=== PATIENT | female | born 1970 | race Caucasian/White ===

== ENCOUNTER 2021-09-02 09:22 | Day surgery (SDC) | payer BC ==
[2021-08-31 09:12] LABS: Absolute Lymphocytes (CBC) 2.1 K/uL (0.7-4.9); Hematocrit 43.8 % (36.0-45.0); Lymphocytes % 32.9 % (15.3-44.8); MPV 8.3 fL (7.6-11.3); RBC Red Blood Cell Count 4.87 M/uL (3.86-4.86)
[2021-08-31 09:18] LABS: Protime INR 0.92
[2021-08-31 09:33] LABS: Albumin 4.1 g/dL (3.4-5.0); Bilirubin Total 0.3 mg/dL (0.2-1.0); C-Reactive Protein 4.26 mg/L (<3.00); Protein, Total 7.7 g/dL (6.4-8.2)
[2021-08-31 09:34] LABS: Potassium 4.6 mmol/L (3.5-5.1)
--- NOTE | 2021-08-31 09:48 | RAD REPORT ---
EXAM DESCRIPTION: Jose Crawford And Esvin (2 Views)08/31/2021 9:30 am CLINICAL HISTORY: Preop for knee surgery COMPARISON: 2011 FINDINGS: Mild bilateral interstitial lung opacities appear chronic. The lungs appear clear of acute infiltrate. The heart is normal size IMPRESSION: No acute abnormalities displayed
[2021-08-31 10:23] LABS: Rheumatoid Factor NEG (NEG)
[2021-09-02] MEDS ORDERED: CEFAZOLIN SODIUM 1 GM/VIAL ONE (09:34)
[2021-09-02] MEDS ORDERED: Ringers Lactate 1,000 ML IV ONE (09:34)
[2021-09-02] MEDS ORDERED: NA CHLORIDE 0.9% 50 ML ONE (09:55)
[2021-09-02] MEDS ORDERED: propofoL 200 MG/20 ML VIAL IV ONE (10:35)
[2021-09-02] MEDS ORDERED: FENTANYL CITR 100 MCG/2 ML ONE (10:35)
[2021-09-02] MEDS ORDERED: MIDAZOLAM HCL 2 MG/2 ML INJ ONE (10:36)
[2021-09-02] MEDS ORDERED: LIDOCAINE 2% MPF 5 ML VIAL ONE (10:36)
[2021-09-02] MEDS ORDERED: ONDANSETRON 4 MG/2 ML VIAL ONE (10:36)
[2021-09-02] MEDS ORDERED: BUPIVACAINE 0.25% PF 10 ML VIAL ONE (10:44)
[2021-09-02] MEDS ORDERED: dexAMETHasone 10 MG/ML VIAL ONE (11:40)
[2021-09-02] MEDS ORDERED: KETOROLAC 30 MG/ML INJ ONE (11:40)
--- NOTE | 2021-09-02 12:55 | P.BOP ---
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
[2021-09-02 13:24] VITALS: O2SAT 97
[2021-09-02] MEDS ORDERED: HYDROCODONE/APAP 5/325 MG TAB ONE (14:37)
[2021-09-02 14:53] VITALS: BP 141/81; TEMP 97.5
--- NOTE | 2021-09-03 03:14 | OP ---
Date of Procedure: 09/02/2021 Surgeon: Jatinder Ellison MD Preoperative Diagnoses: 1.Right knee medial meniscus tear. 2.Right knee anterior cyst. Postoperative Diagnoses: 1.Right knee medial meniscus tear. 2.Right knee anterior cyst. 3.Right knee medial plica. Procedures Performed: 1.Right knee arthroscopic partial medial meniscectomy. 2.Right knee arthroscopic plica excision. 3.Right knee anterior cyst excision. Anesthesia: General LMA. Fluids: Per Anesthesia record. Ebl: 5 cc. Complications: None. Specimen: Right knee anterior cyst. Implants: None. Tourniquet Time: 44 minutes at 300 mmHg. Indication For Procedure: Yanet is a 51-year-old female who presented to my clinic with signs, sympt oms, and MRI findings consistent with a medial meniscus tear as well as an anterior subcutaneous gang lion cyst. I discussed with the patient at length risks and benefits associated with operative and n onoperative treatment. She expressed understanding and elected to proceed with operative treatment. Description Of Procedure: After informed consent was obtained, the patient was identified in the pre operative holding area. The right lower extremity was marked. The patient was then brought back to the operating room, transferred to the operating table in supine fashion and placed under general LMA anesthesia. The right lower extremity was then prepped and draped in usual sterile fashion. A time -out was initiated. The correct patient and procedure were confirmed and identified. The patient di d receive her preoperative prophylactic antibiotics. The right lower extremity was then exsanguinate d using an Esmarch and the tourniquet was inflated to 300 mmHg. Attention was first taken to excisin g the anterior subcutaneous ganglion cyst. Approximately a 2 cm longitudinal incision was made cente red over the ganglion cyst, just anterior to the lateral patella. Dissection was then taken using te notomies to skeletonize the cyst, the stalk was then found and cauterized and the cyst was excised an d sent to Pathology. The wound was then irrigated thoroughly with normal saline and incision was gisela roximated using a 4-0 Monocryl. Next, attention was taken to perform an arthroscopy. Standard anter omedial and anterolateral portals were created. Arthroscope was brought in via the anterolateral por heather and diagnostic arthroscopy was performed. The arthroscope was first brought into patellofemoral joint where the patient was noted to have grade 3 changes on the undersurface of the patella. The ar throscope was then brought in both medial and lateral gutters and there were no loose bodies found. The patient was noted to have a medial plica and an arthroscopic shaver and radiofrequency ablator we re then used to perform a medial plica excision. After this was completed, there was no plica that w as rubbing on the medial femoral condyle. The arthroscope was then brought to the medial compartment where the patient noted to have a complex tear of the posterior horn and body of the medial meniscus tear with a horizontal cleavage type pattern. Partial medial meniscectomy was performed using menis héctor biters and arthroscopic shaver to smooth meniscal borders that were stable to probe. The patient had some minimal chondromalacia changes of the medial femoral condyle. The arthroscope was then bro ught into intercondylar notch where the patient was noted to have an intact ACL and PCL. The arthros cope was brought in the lateral compartment. The patient was noted to have an intact lateral meniscu s and no significant chondromalacia of the lateral femoral condyle or lateral tibial plateau. Arthro scopic instruments were then removed without complication. Wounds were then irrigated thoroughly wit h normal saline. Skin was approximated using a 4-0 Monocryl. Sterile dressings were applied. Tourn iquet was let down. The patient was awakened and transferred to PACU in stable condition. Postoperative Plan: The patient will be weightbearing as tolerated. She will follow up next week fo r wound check and she will begin physical therapy per post meniscectomy protocol. KRISTIE/MODL Voice ID: [id number] Report ID: [id number]
== END 2021-09-02 14:40 | disposition home or self-care (01) ==
LOC: OR 09:22
PROVIDERS: ATTEND Orthopaedic Surgery Sports Medicine
PROC: 0JBN0ZZ Excision of Right Lower Leg Subcutaneous Tissue and Fascia, Open Approach (ICD-10-PCS; 2021-09-02)
PROC: 0SBC4ZZ Excision of Right Knee Joint, Percutaneous Endoscopic Approach (ICD-10-PCS; principal; 2021-09-02 11:00)
DX: S83.241A Other tear of medial meniscus, current injury, right knee, initial encounter (principal); M17.11 Unilateral primary osteoarthritis, right knee; M25.861 Other specified joint disorders, right knee; L72.0 Epidermal cyst; Z20.822 Contact with and (suspected) exposure to COVID-19
CPT/HCPCS: 93005; 85025; 36415; 86430; 85610; 80061; 88304; 85730; 85652; 80053; 82784; 86140; 71046; 29881; 11402; U0003; J2704; J2250; J3010; J1100; J7120; J2405; J0690